=== PATIENT | male | born 1970 | race Caucasian/White ===

== ENCOUNTER 2017-03-07 09:05 | Emergency (ER) | payer OTHER ==
[~2017-03-07] VITALS: Ht 188 cm; Wt 120.0 kg
[2017-03-07] MEDS ORDERED: FLEXERIL PO (10:40)
[2017-03-07] MEDS ORDERED: TORADOL PO (10:40)
[2017-03-07 11:06] VITALS: BP 139/86
== END 2017-03-07 11:06 | disposition home or self-care (01) | DRG 552 ==
LOC: ED 09:05
DX: S16.1XXA Strain of muscle, fascia and tendon at neck level, initial encounter (principal); V63.5XXA Driver of heavy transport vehicle injured in collision with car, pick-up truck or van in traffic accident, initial encounter; Y92.488 Other paved roadways as the place of occurrence of the external cause